=== PATIENT | male | born 1935 | race Caucasian/White ===

== ENCOUNTER 2017-04-15 21:26 | Emergency (ER) | payer MEDICARE ==
[2017-04-15 21:34] VITALS: RESP 18
[2017-04-15] MEDS ORDERED: RX INFO: IV CONTRAST WAS GIVEN 1 EACH MISC MISCELLANE PRN (21:56)
[2017-04-15] MEDS ORDERED: SODIUM CHLORIDE 0.9% 1,000 ML IV STA (21:56)
[2017-04-15 23:07] LABS: Basophils % (A) 0 %; CH 27.5; CHCM 32.4; Eosinophils # (A) 0.1 k/uL (0-0.7); Eosinophils % (A) 1 %; HCT 39.9 % (39.0-53.0); HDW 2.37; HGB 13.3 gm/dL (13.0-17.5); Luc # (Auto) 0.22; Luc % (Auto) 3; Lymphocytes # (A) 1.3 k/uL (1.0-4.8); Lymphocytes % (A) 15 %; MCH 28.5 pg (25.0-35.0); MCHC 33.3 g/dL (31.0-37.0); MCV 85.4 fL (80.0-100.0); Mean Platelet Volume 7.5; Monocytes # (A) 0.7 k/uL (0-1.0); Monocytes % (A) 8 %; Neutrophils # (A) 6.5 k/uL (1.3-7.7); Neutrophils % (A) 73 %; RBC 4.67 m/uL (4.30-5.90); RDW 15.8 % (11.5-15.5); WBC 8.9 k/uL (3.8-10.6)
--- NOTE | 2017-04-15 23:07 | ED ---
Abdominal Pain HPI - General Chief Complaint: Abdominal Pain Stated Complaint: Regi Pain Time Seen by Provider: 04/15/17 21:49 Source: patient, RN notes reviewed Mode of arrival: ambulatory Limitations: no limitations - History of Present Illness Initial Comments: 81-year-old male presents to the emergency department with a chief complaint of left-sided abdominal pain. Patient has had this pain for the past few days. Today just seemed to get worse. Patient states that he went to urgent care and was informed and down pain and to go home. Patient states it got worse. Bumps the car ride here made it hurt worse. Patient does have a history of diverticulitis. He denies any fever chills nausea vomiting. This time he denies pain.Patient denies any recent fever, chills, shortness of breath, chest pain, back pain, nausea vomiting, numbness or tingling, dysuria or hematuria, constipation or diarrhea, headaches or visual changes, or any other current symptoms. - Related Data Previous Rx's Medication Instructions Recorded Ciprofloxacin HCl [Cipro] 500 mg PO Q12HR #14 tablet 04/16/17 metroNIDAZOLE [Flagyl] 500 mg PO TID #21 tab 04/16/17 Allergies Allergy/AdvReac Type Severity Reaction Status Date / Time lisinopril [From Zestril] Allergy Cough Verified 04/15/17 21:34 Review of Systems ROS Statement: Those systems with pertinent positive or pertinent negative responses have been documented in the HPI. ROS Other: All systems not noted in ROS Statement are negative. Past Medical History Past Medical History: Cancer, CVA/TIA History of Any Multi-Drug Resistant Organisms: None Reported Past Surgical History: Hernia Repair Additional Past Surgical History / Comment(s): Mitral valve repair Past Psychological History: No Psychological Hx Reported Smoking Status: Never smoker Past Alcohol Use History: Occasional Past Drug Use History: None Reported General Exam - General Exam Comments Initial Comments: General: The patient is awake and alert, in no distress, and does not appear acutely ill. Eye: Pupils are equal, round and reactive to light, extra-ocular movements are intact; there is normal conjunctiva bilaterally. No signs of icterus. Ears, nose, mouth and throat: There are moist mucous membranes and no oral lesions. Neck: The neck is supple, there is no tenderness. Cardiovascular: There is a regular rate and rhythm. No murmur, rub or gallop is appreciated. Respiratory: Lungs are clear to auscultation, respirations are non-labored, breath sounds are equal. No wheezes, stridor, rales, or rhonchi. Gastrointestinal: Soft, non-distended, left lower quadrant tenderness of the abdomen without masses or organomegaly noted. There is no rebound or guarding present. No CVA tenderness. Bowel sounds are unremarkable. Back: There is no tenderness to palpation in the midline. There is no obvious deformity. No rashes noted. Musculoskeletal: Normal ROM, no tenderness, There is no pedal edema. There is no calf tenderness or swelling. Sensation intact. Pulses equal bilaterally 2+. Neurological: CN II-XII intact, There are no obvious motor or sensory deficits. Coordination appears grossly intact. Speech is normal. Skin: Skin is warm and dry and no rashes or lesions are noted. Psychiatric: Cooperative, appropriate mood & affect, normal judgment. Limitations: no limitations Course Vital Signs 04/15/17 04/16/17 21:30 00:19 Temperature 99.1 F 97.8 F Pulse Rate 75 65 Respiratory 18 18 Rate Blood Pressure 144/66 144/79 O2 Sat by Pulse 95 99 Oximetry Medical Decision Making - Medical Decision Making 81-year-old male presents emergency Department chief complaint of left-sided abdominal pain. This time patient's CAT scan of blood work is reviewed. There is concern for acute diverticulitis. Patient has only blood cell count and vital signs are stable at this time. Patient was offered admission hospital he states he would like to try on antibiotics. We will start him on Cipro Flagyl for home. We discussed close follow-up with his doctor and return parameters. Patient does agree with this plan all questions have been answered. We will discharge the patient per his request. He does not stay in the hospital. - Lab Data Result diagrams: 04/15/17 22:47 04/15/17 22:47 Lab Results 04/15/17 04/15/17 04/15/17 Range/Units 22:47 22:47 22:47 WBC 8.9 (3.8-10.6) k/uL RBC 4.67 (4.30-5.90) m/uL Hgb 13.3 (13.0-17.5) gm/dL Hct 39.9 (39.0-53.0) % MCV 85.4 (80.0-100.0) fL MCH 28.5 (25.0-35.0) pg MCHC 33.3 (31.0-37.0) g/dL RDW 15.8 H (11.5-15.5) % Plt Count 175 (150-450) k/uL Neutrophils % 73 % Lymphocytes % 15 % Monocytes % 8 % Eosinophils % 1 % Basophils % 0 % Neutrophils # 6.5 (1.3-7.7) k/uL Lymphocytes # 1.3 (1.0-4.8) k/uL Monocytes # 0.7 (0-1.0) k/uL Eosinophils # 0.1 (0-0.7) k/uL Basophils # 0.0 (0-0.2) k/uL Sodium 138 (137-145) mmol/L Potassium 4.3 (3.5-5.1) mmol/L Chloride 103 (98-107) mmol/L Carbon Dioxide 26 (22-30) mmol/L Anion Gap 9 mmol/L BUN 17 (9-20) mg/dL Creatinine 0.80 (0.66-1.25) mg/dL Est GFR (MDRD) Af Amer >60 (>60 ml/min/1.73 sqM) Est GFR (MDRD) Non-Af >60 (>60 ml/min/1.73 sqM) Glucose 99 (74-99) mg/dL Plasma Lactic Acid Ángel 0.7 (0.7-2.0) mmol/L Calcium 9.1 (8.4-10.2) mg/dL Total Bilirubin 0.6 (0.2-1.3) mg/dL AST 23 (17-59) U/L ALT 29 (21-72) U/L Alkaline Phosphatase 72 (38-126) U/L Total Protein 6.4 (6.3-8.2) g/dL Albumin 3.5 (3.5-5.0) g/dL Amylase 39 (30-110) U/L Lipase 89 (23-300) U/L Urine Color Urine Appearance (Clear) Urine pH (5.0-8.0) Ur Specific [place] (1.001-1.035) Urine Protein (Negative) Urine Glucose (UA) (Negative) Urine Ketones (Negative) Urine Blood (Negative) Urine Nitrite (Negative) Urine Bilirubin (Negative) Urine Urobilinogen (<2.0) mg/dL Ur Leukocyte Esterase (Negative) 04/15/17 Range/Units 22:47 WBC (3.8-10.6) k/uL RBC (4.30-5.90) m/uL Hgb (13.0-17.5) gm/dL Hct (39.0-53.0) % MCV (80.0-100.0) fL MCH (25.0-35.0) pg MCHC (31.0-37.0) g/dL RDW (11.5-15.5) % Plt Count (150-450) k/uL Neutrophils % % Lymphocytes % % Monocytes % % Eosinophils % % Basophils % % Neutrophils # (1.3-7.7) k/uL Lymphocytes # (1.0-4.8) k/uL Monocytes # (0-1.0) k/uL Eosinophils # (0-0.7) k/uL Basophils # (0-0.2) k/uL Sodium (137-145) mmol/L Potassium (3.5-5.1) mmol/L Chloride (98-107) mmol/L Carbon Dioxide (22-30) mmol/L Anion Gap mmol/L BUN (9-20) mg/dL Creatinine (0.66-1.25) mg/dL Est GFR (MDRD) Af Amer (>60 ml/min/1.73 sqM) Est GFR (MDRD) Non-Af (>60 ml/min/1.73 sqM) Glucose (74-99) mg/dL Plasma Lactic Acid [place] (0.7-2.0) mmol/L Calcium (8.4-10.2) mg/dL Total Bilirubin (0.2-1.3) mg/dL AST (17-59) U/L ALT (21-72) U/L Alkaline Phosphatase (38-126) U/L Total Protein (6.3-8.2) g/dL Albumin (3.5-5.0) g/dL Amylase (30-110) U/L Lipase (23-300) U/L Urine Color Light Yellow Urine Appearance Clear (Clear) Urine pH 7.0 (5.0-8.0) Ur Specific [place] 1.009 (1.001-1.035) Urine Protein Negative (Negative) Urine Glucose (UA) Negative (Negative) Urine Ketones Negative (Negative) Urine Blood Negative (Negative) Urine Nitrite Negative (Negative) Urine Bilirubin Negative (Negative) Urine Urobilinogen <2.0 (<2.0) mg/dL Ur Leukocyte Esterase Negative (Negative) - Radiology Data Radiology results: report reviewed, image reviewed Disposition Clinical Impression: Acute diverticulitis Disposition: HOME SELF-CARE Condition: Stable Instructions: Diverticulitis (ED), Diverticulitis Diet (ED) Additional Instructions: Please use medication as discussed. Please follow up with family doctor if symptoms have not improved over the next two days. Please return to the emergency room if your symptoms increase or worsen or for any other concerns. Prescriptions: Ciprofloxacin HCl [Cipro] 500 mg PO Q12HR #14 tablet metroNIDAZOLE [Flagyl] 500 mg PO TID #21 tab Referrals: Angela Emery MD [Primary Care Provider] - 1-2 days Time of Disposition: 01:05
[2017-04-15 23:08] LABS: Appearance,Urine Clear (Clear); Bilirubin,Urine Negative (Negative); Glucose,Urine (UA) Negative (Negative); Ketones,Urine Negative (Negative); Leukocyte Esterase,Urine Negative (Negative); Nitrite,Urine Negative (Negative); Protein,Urine Negative (Negative); Specific Gravity,Urine 1.009 (1.001-1.035); UA Billing (MACRO vs. MICRO) CHEM; Urobilinogen,Urine <2.0 mg/dL (<2.0)
[2017-04-15 23:20] LABS: ALT 29 U/L (21-72); AST 23 U/L (17-59); Alkaline Phosphatase 72 U/L (38-126); Amylase 39 U/L (30-110); Anion Gap 9 mmol/L; Blood Urea Nitrogen 17 mg/dL (9-20); Calcium 9.1 mg/dL (8.4-10.2); Carbon Dioxide 26 mmol/L (22-30); Chloride 103 mmol/L (98-107); Glucose 99 mg/dL (74-99); Non-African American GFR(MDRD) >60 (>60 ml/min/1.73 sqM); Potassium 4.3 mmol/L (3.5-5.1); Sodium 138 mmol/L (137-145); Total Bilirubin 0.6 mg/dL (0.2-1.3); Total Protein 6.4 g/dL (6.3-8.2)
--- NOTE | 2017-04-16 00:50 | CT ---
EXAM: CT Abdomen and Pelvis With Intravenous Contrast CLINICAL HISTORY: Reason: Pain TECHNIQUE: Axial computed tomography images of the abdomen and pelvis with intravenous contrast. CTDI is 17 mGy and DLP is 607.70 mGy-cm. This CT exam was performed using one or more of the following dose reduction techniques: automated exposure control, adjustment of the mA and/or kV according to patient size, and/or use of iterative reconstruction technique. COMPARISON: None FINDINGS: Lower thorax: Parenchymal scarring in the right middle lobe, and left lower lobe atelectasis. Mild cardiomegaly. Status post mitral valve replacement. ABDOMEN: Liver: Unremarkable. No mass. Gallbladder and bile ducts: Unremarkable. No calcified stones. No ductal dilation. Pancreas: Unremarkable. No mass. No ductal dilation. Spleen: Unremarkable. No splenomegaly. Adrenals: Unremarkable. No mass. Kidneys and ureters: Unremarkable. No solid mass. No hydronephrosis. Stomach and bowel: Mucosal wall thickening and mesenteric inflammation surrounding multiple diverticula in the distal descending colon, compatible with acute diverticulitis. No evidence of perforation or abscess. Post surgical changes involving the ascending colon within focally dilated loop of bowel containing fecal material. No signs of obstruction. Appendix: No findings to suggest acute appendicitis. PELVIS: Bladder: Prostate gland significantly enlarged and heterogeneous. Mass effect upon the posterior urinary bladder wall. Reproductive: See above. ABDOMEN and PELVIS: Intraperitoneal space: Unremarkable. No free air. No significant fluid collection. Bones/joints: Grade 1 anterolisthesis of L5 on S1 secondary to bilateral pars defects. Severe disc height loss at the L5-S1 level. Mild multilevel lumbar spondylosis. No acute fracture. No dislocation. Soft tissues: Unremarkable. Vasculature: Unremarkable. No abdominal aortic aneurysm. Lymph nodes: Unremarkable. No enlarged lymph nodes. IMPRESSION: Acute diverticulitis involving the descending colon without evidence of perforation or abscess. Consider follow-up colonoscopy after acute symptoms have resolved. Enlarged and heterogeneous prostate gland. Correlate with exam and PSA levels. 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
[2017-04-16] MEDS ORDERED: CIPROFLOXACIN HCL 500 MG TAB PO STA (01:05)
[2017-04-16] MEDS ORDERED: metroNIDAZOLE 500 MG TAB PO STA (01:05)
[2017-04-16 01:42] VITALS: BP 140/81; PULSE 84; TEMP 98.1
== END 2017-04-16 01:42 | disposition home or self-care (01) ==
LOC: EC 21:26
DX: K57.32 Diverticulitis of large intestine without perforation or abscess without bleeding (principal); Z88.8 Allergy status to other drugs, medicaments and biological substances
CPT/HCPCS: 99284; 96360; 36415; 80053; 82150; 83605; 83690; 85025; 81003; 87040; 87086; 74177; Q9967

== ENCOUNTER 2018-07-03 16:27 | Inpatient (IN) | payer MEDICARE ==
[2018-07-03] MEDS ORDERED: SODIUM CHLORIDE 0.9% 1,000 ML IV STA (16:49)
--- NOTE | 2018-07-03 16:53 | ED ---
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 Family got a piece felt lightheaded and had trouble navigating. He states this lasted about 15-20 seconds. He did follow-up with his doctor today and he was noted to be in atrial fibrillation which he is not normally in. He has any chest pain palpitations shortness of breath fevers chills sweats peripheral edema. He denies any other complaints no new medications reported. No other modifying factors at this time. MD Complaint: atrial fibrillation - Related Data Home Medications Medication Instructions Recorded Confirmed Aspirin EC [Ecotrin Low Dose] 81 mg PO HS 07/03/18 07/03/18 Cholecalciferol [Vitamin D3] 1,000 unit PO DAILY 07/03/18 07/03/18 Green Tea [place] Extract [Green Tea 150 mg PO DAILY 07/03/18 07/03/18 Extract] Turmeric Root Extract [Turmeric] 500 mg PO DAILY 07/03/18 07/03/18 amLODIPine [Norvasc] 5 mg PO DAILY 07/03/18 07/03/18 Allergies Allergy/AdvReac Type Severity Reaction Status Date / Time lisinopril [From Zestril] Allergy Cough Verified 07/03/18 17:11 Review of Systems ROS Statement: Those systems with pertinent positive or pertinent negative responses have been documented in the HPI. ROS Other: All systems not noted in ROS Statement are negative. Past Medical History Past Medical History: Atrial Fibrillation, Cancer, CVA/TIA Additional Past Medical History / Comment(s): colon CA History of Any Multi-Drug Resistant Organisms: None Reported Past Surgical History: Bowel Resection, Hernia Repair Additional Past Surgical History / Comment(s): colon resection, Mitral valve repair Past Psychological History: No Psychological Hx Reported Smoking Status: Never smoker Past Alcohol Use History: Occasional Past Drug Use History: None Reported General Exam - General Exam Comments Initial Comments: This is a well-developed well-nourished awake alert oriented 3 male Limitations: no limitations General appearance: alert, in no apparent distress Head exam: Present: atraumatic, normocephalic, normal inspection Eye exam: Present: normal appearance, PERRL, EOMI. Absent: scleral icterus, conjunctival injection, periorbital swelling ENT exam: Present: normal exam, mucous membranes moist Neck exam: Present: normal inspection. Absent: tenderness, meningismus, lymphadenopathy Respiratory exam: Present: normal lung sounds bilaterally. Absent: respiratory distress, wheezes, rales, rhonchi, stridor Cardiovascular Exam: Present: tachycardia, irregular rhythm. Absent: systolic murmur, diastolic murmur, rubs, gallop, clicks GI/Abdominal exam: Present: soft, normal bowel sounds. Absent: distended, tenderness, guarding, rebound, rigid Extremities exam: Present: normal inspection, full ROM, normal capillary refill. Absent: tenderness, pedal edema, joint swelling, calf tenderness Back exam: Present: normal inspection Neurological exam: Present: alert, oriented X3, CN II-XII intact Psychiatric exam: Present: normal affect, normal mood Skin exam: Present: warm, dry, intact, normal color. Absent: rash Course Vital Signs 07/03/18 07/03/18 07/03/18 16:30 16:58 17:00 Temperature 97.3 F L Pulse Rate 85 105 H Pulse Rate [ 78 Apical] Respiratory 16 18 Rate Blood Pressure 148/94 137/80 O2 Sat by Pulse 95 96 Oximetry 07/03/18 07/03/18 07/03/18 17:30 18:00 18:30 Temperature Pulse Rate 95 95 112 H Pulse Rate [ Apical] Respiratory 18 16 18 Rate Blood Pressure 129/88 127/89 122/79 O2 Sat by Pulse 96 93 L Oximetry 07/03/18 07/03/18 07/03/18 19:00 19:30 20:00 Temperature Pulse Rate 79 93 88 Pulse Rate [ Apical] Respiratory 18 20 18 Rate Blood Pressure 127/106 132/82 144/81 O2 Sat by Pulse 91 L 96 95 Oximetry - Reevaluation(s) Reevaluation #1: 07/03/18 20:44 Reevaluation patient reveals he is still sustained atrial fibrillation with a variable response rate. No chest pain no shortness of breath no other symptoms at this time. X-rays were reviewed unremarkable for acute findings. EKG Findings - EKG Results: EKG: interpreted by ERMD (Atrial fibrillation with a rate of 102 QRS duration 106 QT since QTC 356/[address] configuration occasional PVCs noted) Medical Decision Making - Medical Decision Making I did discuss findings with patient and family members as well as with Dr. Dahl. Patient be admitted for evaluation of rapid atrial fibrillation. Dr. Razo will be consulted as he is the patient's edgerman. - Lab Data Result diagrams: 07/03/18 16:55 07/03/18 16:55 Lab Results 07/03/18 07/03/18 07/03/18 Range/Units 16:55 16:55 16:55 WBC 7.4 (3.8-10.6) k/uL RBC 4.74 (4.30-5.90) m/uL Hgb 14.7 (13.0-17.5) gm/dL Hct 44.5 (39.0-53.0) % MCV 93.8 (80.0-100.0) fL MCH 31.0 (25.0-35.0) pg MCHC 33.0 (31.0-37.0) g/dL RDW 12.8 (11.5-15.5) % Plt Count 204 (150-450) k/uL Neutrophils % 67 % Lymphocytes % 21 % Monocytes % 8 % Eosinophils % 1 % Basophils % 0 % Neutrophils # 5.0 (1.3-7.7) k/uL Lymphocytes # 1.6 (1.0-4.8) k/uL Monocytes # 0.6 (0-1.0) k/uL Eosinophils # 0.1 (0-0.7) k/uL Basophils # 0.0 (0-0.2) k/uL PT (9.0-12.0) sec INR (<1.2) APTT (22.0-30.0) sec Sodium 136 L (137-145) mmol/L Potassium 4.6 (3.5-5.1) mmol/L Chloride 104 (98-107) mmol/L Carbon Dioxide 23 (22-30) mmol/L Anion Gap 9 mmol/L BUN 24 H (9-20) mg/dL Creatinine 0.97 (0.66-1.25) mg/dL Est GFR (CKD-EPI)AfAm 84 (>60 ml/min/1.73 sqM) Est GFR (CKD-EPI)NonAf 73 (>60 ml/min/1.73 sqM) Glucose 95 (74-99) mg/dL Calcium 9.2 (8.4-10.2) mg/dL Magnesium 2.3 (1.6-2.3) mg/dL Total Bilirubin 0.7 (0.2-1.3) mg/dL AST 36 (17-59) U/L ALT 6 L (21-72) U/L Alkaline Phosphatase 89 (38-126) U/L Total Creatine Kinase 120 (55-170) U/L CK-MB (CK-2) 2.3 (0.0-2.4) ng/mL CK-MB (CK-2) Rel Index 1.9 Troponin I 0.013 (0.000-0.034) ng/mL Total Protein 6.8 (6.3-8.2) g/dL Albumin 3.8 (3.5-5.0) g/dL TSH 2.230 (0.465-4.680) mIU/L 07/03/18 Range/Units 16:55 WBC (3.8-10.6) k/uL RBC (4.30-5.90) m/uL Hgb (13.0-17.5) gm/dL Hct (39.0-53.0) % MCV (80.0-100.0) fL MCH (25.0-35.0) pg MCHC (31.0-37.0) g/dL RDW (11.5-15.5) % Plt Count (150-450) k/uL Neutrophils % % Lymphocytes % % Monocytes % % Eosinophils % % Basophils % % Neutrophils # (1.3-7.7) k/uL Lymphocytes # (1.0-4.8) k/uL Monocytes # (0-1.0) k/uL Eosinophils # (0-0.7) k/uL Basophils # (0-0.2) k/uL PT 10.8 (9.0-12.0) sec INR 1.1 (<1.2) APTT 23.0 (22.0-30.0) sec Sodium (137-145) mmol/L Potassium (3.5-5.1) mmol/L Chloride (98-107) mmol/L Carbon Dioxide (22-30) mmol/L Anion Gap mmol/L BUN (9-20) mg/dL Creatinine (0.66-1.25) mg/dL Est GFR (CKD-EPI)AfAm (>60 ml/min/1.73 sqM) Est GFR (CKD-EPI)NonAf (>60 ml/min/1.73 sqM) Glucose (74-99) mg/dL Calcium (8.4-10.2) mg/dL Magnesium (1.6-2.3) mg/dL Total Bilirubin (0.2-1.3) mg/dL AST (17-59) U/L ALT (21-72) U/L Alkaline Phosphatase (38-126) U/L Total Creatine Kinase (55-170) U/L CK-MB (CK-2) (0.0-2.4) ng/mL CK-MB (CK-2) Rel Index Troponin I (0.000-0.034) ng/mL Total Protein (6.3-8.2) g/dL Albumin (3.5-5.0) g/dL TSH (0.465-4.680) mIU/L - Radiology Data Radiology results: report reviewed, image reviewed (I did review the imaging and report no acute findings.) Critical Care Time Critical Care Time: Yes Critical Care Time: 39 minutes of critical care time which includes initial presentation with history physical labs x-rays several reevaluation the patient. Discussed with the patient family regarding findings review of old charting that was available. Discussion with the admitting physician admission orders and documentation of the above. Disposition Clinical Impression: Rapid atrial fibrillation Disposition: ADMITTED IP TO THIS HOSP Condition: Stable Referrals: Angela Emery MD [Primary Care Provider] - 1-2 days
--- NOTE | 2018-07-03 17:20 | XR ---
EXAMINATION TYPE: XR chest 2V DATE OF EXAM: 07/03/2018 COMPARISON: Chest x-ray August 25, 2012 HISTORY: Dizziness and dysrhythmia. TECHNIQUE: Frontal and lateral views of the chest are obtained. FINDINGS: There is chronic parenchymal changes elevated left hemidiaphragm on current study. There is no focal air space opacity, pleural effusion, or pneumothorax seen. The cardiac silhouette size rem ains enlarged with curvilinear density at level of mitral valve redemonstrated. The osseous structu res are intact. IMPRESSION: Chronic changes and cardiomegaly without acute pulmonary process.
[2018-07-03 17:33] LABS: Basophils % (A) 0 %; Eosinophils # (A) 0.1 k/uL (0-0.7); Eosinophils % (A) 1 %; HCT 44.5 % (39.0-53.0); HGB 14.7 gm/dL (13.0-17.5); Lymphocytes # (A) 1.6 k/uL (1.0-4.8); Lymphocytes % (A) 21 %; MCV 93.8 fL (80.0-100.0); Monocytes # (A) 0.6 k/uL (0-1.0); Monocytes % (A) 8 %; Neutrophils % (A) 67 %; Platelet Count 204 k/uL (150-450); RBC 4.74 m/uL (4.30-5.90); RDW 12.8 % (11.5-15.5); WBC 7.4 k/uL (3.8-10.6)
[2018-07-03 17:44] LABS: Albumin 3.8 g/dL (3.5-5.0); Calcium 9.2 mg/dL (8.4-10.2); Magnesium 2.3 mg/dL (1.6-2.3); Potassium 4.6 mmol/L (3.5-5.1); Total Bilirubin 0.7 mg/dL (0.2-1.3); Total Protein 6.8 g/dL (6.3-8.2)
[2018-07-03 17:48] LABS: INR 1.1 (<1.2); Prothrombin Time 10.8 sec (9.0-12.0)
[2018-07-03 17:59] LABS: Creatine Kinase MB 2.3 ng/mL (0.0-2.4); Troponin I 0.013 ng/mL (0.000-0.034)
[2018-07-03] MEDS ORDERED: HEPARIN SODIUM,PORCINE 5,000 UNIT/ML 1 ML VIAL IV ONE (20:48)
[2018-07-03] MEDS ORDERED: NALOXONE 0.4 MG/ML 1 ML VIAL IV PRN (20:52)
[2018-07-03] MEDS ORDERED: HEPARIN SOD,PORK IN 0.45% NACL 25,000 UNIT in 0.45% NACL 1 500ML.BAG IV SCH (21:00)
[2018-07-03] MEDS: DILTIAZEM 50 MG in SODIUM CHLORIDE 0.9% 40 ML IV SCH (22:04)
[2018-07-04] MEDS: SODIUM CHLORIDE 0.9% 1,000 ML IV SCH (00:49)
[2018-07-04] MEDS: ASPIRIN 81 MG PO SCH ×2 (00:49→06:30)
[2018-07-04 01:07] VITALS: RESP 16
[2018-07-04] MEDS: DILTIAZEM 50 MG in SODIUM CHLORIDE 0.9% 40 ML IV SCH (01:45)
[2018-07-04] MEDS: CHOLECALCIFEROL 1,000 UNIT TAB PO SCH (08:39)
[2018-07-04] MEDS: amLODIPine 5 MG TAB PO SCH (08:39)
--- NOTE | 2018-07-04 09:50 | P.CRDCN ---
History of Present Illness Consult date: 07/04/18 Requesting physician: Cipriano Dahl Consult reason: atrial fibrillation Chief complaint: Lightheadedness and near-syncope History of present illness: This is a pleasant 82-year-old gentleman who follows with Dr. Rascon in the office. He has a known history of hypertension,Mitral valve repair, paroxysmal atrial fibrillation for which he states he was on Coumadin in the past, he has history of a brain bleed, he is unsure exactly of the timing of when that occurred, but his anticoagulation was discontinued at that time. He states that he was brought to [facility] in [place] at the time that occurred. We will get information from there. Overall patient is extremely physically active, he states that he was working on his Upper, lying on the ground yesterday, and he went to stand up and became very lightheaded and felt as though he may pass out. He was concerned that he may be having a stroke so he went to his primary care doctor's office, and EKG was performed there which showed atrial fibrillation with a rapid ventricular response, and patient was directed to come to the emergency room for further evaluation. EKG on arrival here showed atrial fibrillation with a moderately rapid ventricular response nonspecific ST-T wave changes. Chest x-ray showed chronic changes and cardiomegaly without any acute pulmonary process. Blood pressure 126/70 with a heart rate in the 70s, 95% on room air. Patient is afebrile. CBC is normal. Sodium 136, potassium 4.6, BUN 24, creatinine 0.9. Troponin 0.013. TSH 2.2. At the time of my examination this morning, patient feels well, he denies any dizziness or lightheadedness, no palpitations, no shortness of breath. Past Medical History Past Medical History: Atrial Fibrillation, Cancer, CVA/TIA, Osteoarthritis (OA) , Prostate Disorder Additional Past Medical History / Comment(s): colon CA-sx only. djd lt knee, rt hip. 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-pt stated no sx History of Any Multi-Drug Resistant Organisms: None Reported Past Surgical History: Bowel Resection, Hernia Repair Additional Past Surgical History / Comment(s): colon resection, Mitral valve repair, cinthia cataracts, varicose vein stripping, lt inguinal hernia repair, colonoscopy Past Anesthesia/Blood Transfusion Reactions: No Reported Reaction Additional Past Anesthesia/Blood Transfusion Reaction / Comment(s): clausterphobia Smoking Status: Never smoker - Past Family History Mother Additional Family Medical History / Comment(s): lupus Father Additional Family Medical History / Comment(s): anuerysm Medications and Allergies Home Medications Medication Instructions Recorded Confirmed Type Aspirin EC [Ecotrin Low Dose] 81 mg PO HS 07/03/18 07/03/18 History Cholecalciferol [Vitamin D3] 1,000 unit PO DAILY 07/03/18 07/03/18 History Green Tea [place] Extract [Green Tea 150 mg PO DAILY 07/03/18 07/03/18 History Extract] Turmeric Root Extract [Turmeric] 500 mg PO DAILY 07/03/18 07/03/18 History amLODIPine [Norvasc] 5 mg PO DAILY 07/03/18 07/03/18 History Allergies Allergy/AdvReac Type Severity Reaction Status Date / Time lisinopril [From Zestril] Allergy Cough Verified 07/03/18 17:11 Physical Exam Vitals: Vital Signs Temp Pulse Pulse Pulse Resp BP BP 07/04/18 08:00 98.0 F 79 16 126/75 07/04/18 03:44 98.4 F 78 16 146/97 07/04/18 00:15 97.8 F 85 85 16 140/81 07/03/18 23:00 92 11 L 142/99 07/03/18 22:45 106 H 18 142/99 07/03/18 22:30 72 7 L 142/99 07/03/18 22:15 80 8 L 142/99 07/03/18 22:00 83 0 L 141/83 07/03/18 21:45 90 18 141/83 07/03/18 21:30 90 15 141/83 07/03/18 21:15 87 18 141/83 07/03/18 21:00 94 20 07/03/18 20:45 86 18 07/03/18 20:30 90 15 07/03/18 20:00 88 18 144/81 07/03/18 19:30 93 20 132/82 07/03/18 19:00 79 18 127/106 07/03/18 18:30 112 H 18 122/79 07/03/18 18:00 95 16 127/89 07/03/18 17:30 95 18 129/88 07/03/18 17:00 105 H 18 137/80 07/03/18 16:58 78 07/03/18 16:30 97.3 F L 85 16 148/94 Pulse Ox 07/04/18 08:00 95 07/04/18 03:44 94 L 07/04/18 00:15 97 07/03/18 23:00 07/03/18 22:45 94 L 07/03/18 22:30 94 L 07/03/18 22:15 94 L 07/03/18 22:00 95 07/03/18 21:45 94 L 07/03/18 21:30 95 07/03/18 21:15 95 07/03/18 21:00 96 07/03/18 20:45 93 L 07/03/18 20:30 96 07/03/18 20:00 95 07/03/18 19:30 96 07/03/18 19:00 91 L 07/03/18 18:30 07/03/18 18:00 93 L 07/03/18 17:30 96 07/03/18 17:00 96 07/03/18 16:58 07/03/18 16:30 95 Intake and Output 07/03/18 07/04/18 07/04/18 22:59 06:59 14:59 Intake Total 18.417 240 Balance 18.417 240 Intake: Intake, IV Titration 18.417 Amount Diltiazem 50 mg In Sodium 18.417 Chloride 0.9% 40 ml @ 5 MG/HR 5 mls/hr IV .Q10H [facility] Rx#:[id number] Oral 240 Other: Voiding Method Toilet # Voids 1 Weight 78.471 kg 80 kg PHYSICAL EXAMINATION: GENERAL: 82-year-old gentleman in no acute distress at the time of my examination HEENT: Head is atraumatic, normocephalic. Pupils equal, round. Sclera anicteric. Conjunctiva are clear. Mucous membranes of the mouth are moist. Neck is supple. There is no elevated jugular venous pressure. No carotid bruit is heard. HEART EXAMINATION: Heart S1 and S2 irregularly irregular systolic murmur heard CHEST EXAMINATION: Lungs are clear to auscultation and precussion. No chest wall tenderness is noted on palpation or with deep breathing. ABDOMEN: Soft, nontender. Bowel sounds are heard. No organomegaly noted. EXTREMITIES: 2+ peripheral pulses with no evidence of peripheral edema and no calf tenderness noted. NEUROLOGIC patient is awake, alert and oriented 3 . . Results 07/03/18 16:55 07/03/18 16:55 Cardiac Enzymes 07/03/18 07/03/18 Range/Units 16:55 16:55 AST 36 (17-59) U/L CK-MB (CK-2) 2.3 (0.0-2.4) ng/mL Troponin I 0.013 (0.000-0.034) ng/mL Coagulation 07/03/18 Range/Units 16:55 PT 10.8 (9.0-12.0) sec APTT 23.0 (22.0-30.0) sec CBC 07/03/18 Range/Units 16:55 WBC 7.4 (3.8-10.6) k/uL RBC 4.74 (4.30-5.90) m/uL Hgb 14.7 (13.0-17.5) gm/dL Hct 44.5 (39.0-53.0) % Plt Count 204 (150-450) k/uL Comprehensive Metabolic Panel 07/03/18 Range/Units 16:55 Sodium 136 L (137-145) mmol/L Potassium 4.6 (3.5-5.1) mmol/L Chloride 104 (98-107) mmol/L Carbon Dioxide 23 (22-30) mmol/L BUN 24 H (9-20) mg/dL Creatinine 0.97 (0.66-1.25) mg/dL Glucose 95 (74-99) mg/dL Calcium 9.2 (8.4-10.2) mg/dL AST 36 (17-59) U/L ALT 6 L (21-72) U/L Alkaline Phosphatase 89 (38-126) U/L Total Protein 6.8 (6.3-8.2) g/dL Albumin 3.8 (3.5-5.0) g/dL Current Medications Generic Name Dose Route Start Last Admin Trade Name Freq PRN Reason Stop Dose Admin Amlodipine Besylate 5 mg 07/04/18 09:00 07/04/18 08:39 Norvasc PO 5 mg DAILY DULCE MARIA Administration Aspirin 81 mg 07/03/18 21:00 07/04/18 06:30 Aspirin PO 81 mg HS DULCE MARIA Administration Cholecalciferol 1,000 unit 07/04/18 09:00 07/04/18 08:39 Vitamin D3 PO 1,000 unit DAILY DULCE MARIA Administration Diltiazem HCl 50 mg/ Sodium 50 mls @ 5 mls/hr 07/03/18 21:00 07/04/18 01:45 Chloride IV 5 mg/hr .Q10H DULCE MARIA 5 mls/hr Administration 5 MG/HR Sodium Chloride 1,000 mls @ 20 mls/hr 07/03/18 21:00 07/04/18 00:49 Saline 0.9% IV Not Given .Q24H DULCE MARIA Naloxone HCl 0.2 mg 07/03/18 20:52 Narcan IV Q2M PRN Opioid Reversal Intake and Output 07/03/18 07/04/18 07/04/18 22:59 06:59 14:59 Intake Total 18.417 240 Balance 18.417 240 Intake: Intake, IV Titration 18.417 Amount Diltiazem 50 mg In Sodium 18.417 Chloride 0.9% 40 ml @ 5 MG/HR 5 mls/hr IV .Q10H DULCE MARIA Rx#:[id number] Oral 240 Other: Voiding Method Toilet # Voids 1 Weight 78.471 kg 80 kg 07/03/18 16:55 07/03/18 16:55 EKG Interpretations (text) EKG shows atrial fibrillation with a moderately rapid ventricular response Assessment and Plan Plan: Assessment and plan #1 atrial fibrillation, paroxysmal, currently on IV Cardizem at 5 mg per hour. Patient is not on anticoagulation because history of brain bleed. #2 hypertension #3 history of brain bleed, patient is uncertain exactly as to the timing of it. #4 hx of MV repair Plan We will obtain an echocardiogram with Doppler study. We will also obtain records from [facility] regarding the patient's history of a brain bleed. Discontinue IV Cardizem and start the patient on Beta Steven. Further recommendations to follow. DNP note has been reviewed, I agree with a documented findings and plan of care. Patient was seen and examined.
--- NOTE | 2018-07-04 10:28 | ECHOF ---
Referral Reason:afib MEASUREMENTS -------- HEIGHT: 180.3 cm WEIGHT: 79.8 kg BP: RVIDd: 4.4 cm (< 3.3) IVSd: 1.6 cm (0.6 - 1.1) LVIDd: 3.4 cm (3.9 - 5.3) LVPWd: 1.7 cm (0.6 - 1.1) IVSs: 2.2 cm LVIDs: 2.2 cm LVPWs: 1.9 cm LAESV Index (A-L): 52.01 ml/m Ao Diam: 3.9 cm (2.0 - 3.7) AV Cusp: 1.8 cm (1.5 - 2.6) LA Diam: 4.6 cm (2.7 - 3.8) MV EXCURSION: 13.536 mm (> 18.000) MV EF SLOPE: 80 mm/s (70 - 150) EPSS: 0.4 cm MV E David: 1.43 m/s MV DecT: 341 ms MV A David: 0.44 m/s MV E/A Ratio: 3.27 AR PHT: 278 ms RAP: 5.00 mmHg RVSP: 33.38 mmHg FINDINGS -------- Atrial fibrillation. This was a technically good study. The left ventricular size is normal. There is moderate concentric left ventricular hypertrophy. O verall left ventricular systolic function is normal with, an EF between 55 - 60 %. The right ventricle is severely enlarged. LA is severely dilated >40 ml/m2 The right atrium is normal in size. Aortic valve is trileaflet and is mildly thickened. There is mild aortic regurgitation. The mitral valve leaflets are mildly thickened. Mild mitral annular calcification present. Mild m itral regurgitation is present. Severe tricuspid regurgitation present. The right ventricular systolic pressure, as measured by Dop pler, is 33.38mmHg. Pulmonic valve appears structurally normal. The aortic root size is normal. Normal inferior vena cava with normal inspiratory collapse consistent with estimated right atrial pre ssure of 5 mmHg. The pericardium is normal. CONCLUSIONS -------- 1. Atrial fibrillation. 2. This was a technically good study. 3. The left ventricular size is normal. 4. There is moderate concentric left ventricular hypertrophy. 5. Overall left ventricular systolic function is normal with, an EF between 55 - 60 %. 6. The right ventricle is severely enlarged. 7. LA is severely dilated >40 ml/m2 8. The right atrium is normal in size. 9. Aortic valve is trileaflet and is mildly thickened. 10. There is mild aortic regurgitation. 11. The mitral valve leaflets are mildly thickened. 12. Mild mitral annular calcification present. 13. Mild mitral regurgitation is present. 14. Severe tricuspid regurgitation present. 15. The right ventricular systolic pressure, as measured by Doppler, is 33.38mmHg. 16. Pulmonic valve appears structurally normal. 17. The aortic root size is normal. 18. Normal inferior vena cava with normal inspiratory collapse consistent with estimated right atrial pressure of 5 mmHg. 19. The pericardium is normal. EYELET RIVETER: Angeline Haque RDCS
[2018-07-04] MEDS: METOPROLOL TARTRATE 25 MG TAB PO SCH ×2 (10:29→20:10)
--- NOTE | 2018-07-04 12:51 | P.HPIM ---
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 Patient follows up with Dr. Emery in the office. He presents because of lightheadedness and dizziness for 30 seconds that is resolved after he went inside and ate lunch. He went to his PCP who referred him to the emergency room. EKG shows atrial fibrillation's with RVR at 1 or 2. QTC is 463. Review of Systems CONSTITUTIONAL: No fever, no malaise, no fatigue. HEENT: No recent visual problems or hearing problems. Denied any sore throat. CARDIOVASCULAR: No orthopnea, PND, no palpitations, no syncope. PULMONARY: No shortness of breath, no cough, no hemoptysis. GASTROINTESTINAL: No diarrhea, no nausea, no vomiting, no abdominal pain. Normoactive bowel sounds. NEUROLOGICAL: No headaches, no weakness, no numbness. HEMATOLOGICAL: Denies any bleeding or petechiae. GENITOURINARY: Denies any burning micturition, frequency, or urgency. MUSCULOSKELETAL/RHEUMATOLOGICAL: Denies any joint pain, swelling, or any muscle pain. ENDOCRINE: Denies any polyuria or polydipsia. Past Medical History Past Medical History: Atrial Fibrillation, Cancer, CVA/TIA, Osteoarthritis (OA) , Prostate Disorder Additional Past Medical History / Comment(s): colon CA-sx only. djd lt knee, rt hip. 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-pt stated no sx History of Any Multi-Drug Resistant Organisms: None Reported Past Surgical History: Bowel Resection, Hernia Repair Additional Past Surgical History / Comment(s): colon resection, Mitral valve repair, cinthia cataracts, varicose vein stripping, lt inguinal hernia repair, colonoscopy Past Anesthesia/Blood Transfusion Reactions: No Reported Reaction Additional Past Anesthesia/Blood Transfusion Reaction / Comment(s): clausterphobia Smoking Status: Never smoker - Past Family History Mother Additional Family Medical History / Comment(s): lupus Father Additional Family Medical History / Comment(s): anuerysm Medications and Allergies Home Medications Medication Instructions Recorded Confirmed Type Aspirin EC [Ecotrin Low Dose] 81 mg PO HS 07/03/18 07/03/18 History Cholecalciferol [Vitamin D3] 1,000 unit PO DAILY 07/03/18 07/03/18 History Green Tea [place] Extract [Green Tea 150 mg PO DAILY 07/03/18 07/03/18 History Extract] Turmeric Root Extract [Turmeric] 500 mg PO DAILY 07/03/18 07/03/18 History amLODIPine [Norvasc] 5 mg PO DAILY 07/03/18 07/03/18 History Allergies Allergy/AdvReac Type Severity Reaction Status Date / Time lisinopril [From Zestril] Allergy Cough Verified 07/03/18 17:11 Physical Exam Vitals: Vital Signs Temp Pulse Pulse Pulse Resp BP BP 07/04/18 08:00 98.0 F 79 16 126/75 07/04/18 03:44 98.4 F 78 16 146/97 07/04/18 00:15 97.8 F 85 85 16 140/81 07/03/18 23:00 92 11 L 142/99 07/03/18 22:45 106 H 18 142/99 07/03/18 22:30 72 7 L 142/99 07/03/18 22:15 80 8 L 142/99 07/03/18 22:00 83 0 L 141/83 07/03/18 21:45 90 18 141/83 07/03/18 21:30 90 15 141/83 07/03/18 21:15 87 18 141/83 07/03/18 21:00 94 20 07/03/18 20:45 86 18 07/03/18 20:30 90 15 07/03/18 20:00 88 18 144/81 07/03/18 19:30 93 20 132/82 07/03/18 19:00 79 18 127/106 07/03/18 18:30 112 H 18 122/79 07/03/18 18:00 95 16 127/89 07/03/18 17:30 95 18 129/88 07/03/18 17:00 105 H 18 137/80 07/03/18 16:58 78 07/03/18 16:30 97.3 F L 85 16 148/94 Pulse Ox 07/04/18 08:00 95 07/04/18 03:44 94 L 07/04/18 00:15 97 07/03/18 23:00 07/03/18 22:45 94 L 07/03/18 22:30 94 L 07/03/18 22:15 94 L 07/03/18 22:00 95 07/03/18 21:45 94 L 07/03/18 21:30 95 07/03/18 21:15 95 07/03/18 21:00 96 07/03/18 20:45 93 L 07/03/18 20:30 96 07/03/18 20:00 95 07/03/18 19:30 96 07/03/18 19:00 91 L 07/03/18 18:30 07/03/18 18:00 93 L 07/03/18 17:30 96 07/03/18 17:00 96 07/03/18 16:58 07/03/18 16:30 95 Intake and Output 07/03/18 07/04/18 07/04/18 22:59 06:59 14:59 Intake Total 18.417 240 Balance 18.417 240 Intake: Intake, IV Titration 18.417 Amount Diltiazem 50 mg In Sodium 18.417 Chloride 0.9% 40 ml @ 5 MG/HR 5 mls/hr IV .Q10H [facility] Rx#:[id number] Oral 240 Other: Voiding Method Toilet # Voids 1 Weight 78.471 kg 80 kg GENERAL: The patient is alert and oriented x3, not in any acute distress. Well developed, well nourished. HEENT: Pupils are round and equally reacting to light. EOMI. No scleral icterus. No conjunctival pallor. Normocephalic, atraumatic. No pharyngeal erythema. No thyromegaly. CARDIOVASCULAR: S1 and S2 present. No murmurs, rubs, or gallops. PULMONARY: Chest is clear to auscultation, no wheezing or crackles. ABDOMEN: Soft, nontender, nondistended, normoactive bowel sounds. No palpable organomegaly. MUSCULOSKELETAL: No joint swelling or deformity. EXTREMITIES: No cyanosis, clubbing, or pedal edema. NEUROLOGICAL: Gross neurological examination did not reveal any focal deficits. SKIN: No rashes. Results CBC & Chem 7: 07/03/18 16:55 07/03/18 16:55 Labs: Abnormal Lab Results - Last 24 Hours (Table) 10/30/18 Range/Units 16:55 Sodium 136 L (137-145) mmol/L BUN 24 H (9-20) mg/dL ALT 6 L (21-72) U/L Thrombosis Risk Factor Assmnt - Choose All That Apply Any of the Below Risk Factors Present?: No Other Risk Factors: Yes Each Risk Factor Represents 3 Points: Age 75 years or older Other congenital or acquired thrombophilia - If yes, enter type in comment: No Thrombosis Risk Factor Assessment Total Risk Factor Score: 3 Thrombosis Risk Factor Assessment Level: Moderate Risk Assessment and Plan Assessment: Atrial fibrillation's with interrupted RVR 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 Cardiology evaluated the patient and adjusted medication to control her heart rate. Continue with aspirin and metoprolol. Labs and medication were resumed. Continue same treatment. Continue with symptomatic treatment. Resume home medication. Monitor lytes and vitals. DVT and GI prophylaxis. Further recommendations of the clinical course of the patient DVT prophylaxis: Subcutaneous heparin GI Prophylaxis: Pepcid PT/OT: Pending Prognosis is guarded
[2018-07-04] MEDS: HEPARIN SODIUM,PORCINE 5,000 UNIT/ML 1 ML VIAL SQ SCH (15:35)
[2018-07-04] MEDS: FAMOTIDINE 20 MG/2 ML VIAL IV SCH (20:09)
[2018-07-04] MEDS ORDERED: METOPROLOL TARTRATE 25 MG TAB PO SCH (21:00)
[2018-07-05] MEDS: SODIUM CHLORIDE 0.9% 1,000 ML IV SCH (00:57)
[2018-07-05] MEDS: HEPARIN SODIUM,PORCINE 5,000 UNIT/ML 1 ML VIAL SQ SCH ×2 (00:57→08:24)
[2018-07-05 07:57] VITALS: BP 122/76; PULSE 84; TEMP 97.4
[2018-07-05] MEDS: amLODIPine 5 MG TAB PO SCH (08:24)
[2018-07-05] MEDS: METOPROLOL TARTRATE 25 MG TAB PO SCH (08:24)
[2018-07-05] MEDS: CHOLECALCIFEROL 1,000 UNIT TAB PO SCH (08:24)
[2018-07-05] MEDS: FAMOTIDINE 20 MG/2 ML VIAL IV SCH (08:24)
[2018-07-05] MEDS ORDERED: APIXABAN 5 MG TAB PO SCH (09:30)
--- NOTE | 2018-07-05 10:15 | P.DS ---
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 Patient follows up with Dr. Emery in the office. He presents because of lightheadedness and dizziness for 30 seconds that is resolved after he went inside and ate lunch. He went to his PCP who referred him to the emergency room. EKG shows atrial fibrillation's with RVR at102 bpm. QTC is 463. patient has been evaluated by buffer machine team and the decision was to start him on Eliquis, while keeping metoprolol for his rate control. I discussed the risks, benefits and alternative for his blood thinner. Patient told me clearly that he prefers to take the risk of bleeding rather than stroke so he agrees to take the Eliquis. Risks including but not limited to brain bleed, stroke and/or . Based upon my evaluation patient has capacity to make medical decision. Patient was cleared by cardiology team for discharge. Patient returned to his baseline of functioning. Patient doesn't have any symptoms of headache. No chest pain or dyspnea. No change in urine or bowel habits. No nausea vomiting or fever. Problems and management plan was discussed with the patient and he agrees with it. Patient was found stable and can be discharged home and guarded prognosis. However he needs follow-up as an outpatient. Gen: patient is a AAOx3, no distress CVS: S1-S2, RRR, no murmur Lungs: B/L CTA, no wheezing Abdomen: soft, no distention, no tenderness, positive bowel sounds Extremity: no leg edema or induration Time spent more than 35 minutes Patient Condition at Discharge: Stable Plan - Discharge Summary Discharge Rx Participant: Yes New Discharge Prescriptions: New Apixaban [Eliquis] 5 mg PO BID #30 tab Metoprolol Tartrate [Lopressor] 25 mg PO BID #30 tab Continue amLODIPine [Norvasc] 5 mg PO DAILY Turmeric Root Extract [Turmeric] 500 mg PO DAILY Green Tea [place] Extract [Green Tea Extract] 150 mg PO DAILY Aspirin EC [Ecotrin Low Dose] 81 mg PO HS Cholecalciferol [Vitamin D3] 1,000 unit PO DAILY Discharge Medication List Aspirin EC [Ecotrin Low Dose] 81 mg PO HS 07/03/18 [History] Cholecalciferol [Vitamin D3] 1,000 unit PO DAILY 07/03/18 [History] Green Tea [place] Extract [Green Tea Extract] 150 mg PO DAILY 07/03/18 [History] Turmeric Root Extract [Turmeric] 500 mg PO DAILY 07/03/18 [History] amLODIPine [Norvasc] 5 mg PO DAILY 07/03/18 [History] Apixaban [Eliquis] 5 mg PO BID #30 tab 07/05/18 [Rx] Metoprolol Tartrate [Lopressor] 25 mg PO BID #30 tab 07/05/18 [Rx] Follow up Appointment(s)/Referral(s): Angela Emery MD [Primary Care Provider] - 1-2 days Norberto Razo MD [STAFF PHYSICIAN] - 1 Week Patient Instructions/Handouts: A-fib (Atrial Fibrillation) (DC) Activity/Diet/Wound Care/Special Instructions: Pts Monthly copay for Xarelto or Eliquis is $40 Discharge Disposition: HOME SELF-CARE
--- NOTE | 2018-07-05 11:20 | PN ---
PROGRESS NOTE Mr. Razo is an 82-year-old male who presented with symptoms of dizziness and weakness. He has a history of persistent atrial fibrillation. He has not been anticoagulated because of prior episode of intracranial bleed that occurred about 2 years ago. He is active physically, otherwise. Denies any chest pain, no palpitation. He is feeling better today. He is ambulating without difficulty. He had an echocardiogram that revealed preserved ventricular size and systolic function with severe tricuspid regurgitation and no significant pulmonary hypertension. I had a long discussion with him yesterday and his family regarding the issue of anticoagulation, the risk of bleeding and the risk of stroke. He is in favor of trying an anticoagulant. He will be started on Eliquis 5 mg twice a day. Otherwise, he is on amlodipine 5 mg daily, metoprolol tartrate 25 mg twice a day. PHYSICAL EXAMINATION: Blood pressure 122/70 with a heart rate in the 80s. LUNGS: Clear. HEART: Irregular, regular. S1, S2. No S3 with systolic murmur, no diastolic murmur. No rub. ABDOMEN: Soft, nontender. EXTREMITIES: No edema. IMPRESSION: 1. Atrial fibrillation persistent, rate controlled, anticoagulation initiated. 2. Status post mitral valve surgery. 3. History of hyperlipidemia. RECOMMENDATION: From the cardiac standpoint, he should be able to be discharged home today to follow up as an outpatient with Dr. Razo. MMIRISH / LEIGHA: [id number] /
== END 2018-07-05 11:13 | disposition home or self-care (01) | DRG 310 ==
LOC: EC 16:27 → 3SCARD 20:52
PROVIDERS: ADMIT Internal Medicine; ATTEND Internal Medicine
DX: I48.0 Paroxysmal atrial fibrillation (principal); G43.909 Migraine, unspecified, not intractable, without status migrainosus; Z85.038 Personal history of other malignant neoplasm of large intestine; Z86.73 Personal history of transient ischemic attack (TIA), and cerebral infarction without residual deficits; Z90.49 Acquired absence of other specified parts of digestive tract; M17.12 Unilateral primary osteoarthritis, left knee; N42.9 Disorder of prostate, unspecified; M16.11 Unilateral primary osteoarthritis, right hip; Z86.19 Personal history of other infectious and parasitic diseases; Z83.2 Family history of diseases of the blood and blood-forming organs and certain disorders involving the immune mechanism; I67.1 Cerebral aneurysm, nonruptured; Z84.89 Family history of other specified conditions; Z79.82 Long term (current) use of aspirin; Z79.899 Other long term (current) drug therapy; Z88.8 Allergy status to other drugs, medicaments and biological substances; I10 Essential (primary) hypertension; I07.1 Rheumatic tricuspid insufficiency; E78.5 Hyperlipidemia, unspecified
CPT/HCPCS: 36415; 71046; 80053; 82550; 82553; 83735; 84443; 84484; 85025; 85610; 85730; 93005; 93306; 96361; 96365; 96366; 99291

== ENCOUNTER 2019-08-08 09:45 | Emergency (ER) | payer MEDICARE ==
[2019-08-08 10:14] VITALS: BP 150/85; PULSE 76; RESP 16; TEMP 97.9
--- NOTE | 2019-08-08 10:54 | ED ---
ENT HPI - General Chief complaint: ENT Stated complaint: FB in ear Time Seen by Provider: 08/08/19 10:24 Source: patient, RN notes reviewed, old records reviewed Mode of arrival: ambulatory Limitations: no limitations - History of Present Illness Initial comments: this patient's a pleasant 83-year-old male presents emergency department today with a foreign body within his left ear. Patient reports that the rubber piece of his hearing aid is stuck within the ear canal. Patient states that it's been in for approximately one hour. Patient denies any other complaints at this time. Patient states that he's had noted redness swelling or drainage. - Related Data Home Medications Medication Instructions Recorded Confirmed Aspirin EC [Ecotrin Low Dose] 81 mg PO HS 07/03/18 07/03/18 Cholecalciferol [Vitamin D3 (25 1,000 unit PO DAILY 07/03/18 07/03/18 Mcg = 1000 Iu)] Green Tea Ada Extract [Green Tea 150 mg PO DAILY 07/03/18 07/03/18 Extract] Turmeric Root Extract [Turmeric] 500 mg PO DAILY 07/03/18 07/03/18 amLODIPine [Norvasc] 5 mg PO DAILY 07/03/18 07/03/18 Previous Rx's Medication Instructions Recorded Apixaban [Eliquis] 5 mg PO BID #30 tab 07/05/18 Metoprolol Tartrate [Lopressor] 25 mg PO BID #30 tab 07/05/18 Allergies Allergy/AdvReac Type Severity Reaction Status Date / Time lisinopril [From Zestril] Allergy Cough Verified 08/08/19 10:14 Review of Systems ROS Statement: Those systems with pertinent positive or pertinent negative responses have been documented in the HPI. ROS Other: All systems not noted in ROS Statement are negative. Past Medical History Past Medical History: Atrial Fibrillation, Cancer, CVA/TIA, Osteoarthritis (OA), Prostate Disorder Additional Past Medical History / Comment(s): colon CA-sx only. djd lt knee, rt hip. 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-pt stated no sx History of Any Multi-Drug Resistant Organisms: None Reported Past Surgical History: Bowel Resection, Hernia Repair Additional Past Surgical History / Comment(s): colon resection, Mitral valve repair, cinthia cataracts, varicose vein stripping, lt inguinal hernia repair, colonoscopy Past Anesthesia/Blood Transfusion Reactions: No Reported Reaction Additional Past Anesthesia/Blood Transfusion Reaction / Comment(s): clausterphobia Past Psychological History: No Psychological Hx Reported Smoking Status: Never smoker - Past Family History Mother Additional Family Medical History / Comment(s): lupus Father Additional Family Medical History / Comment(s): anuerysm General Exam - General Exam Comments Initial Comments: this is an 83-year-old male. Alert and oriented 3. Patient appears in no distress. Limitations: no limitations General appearance: alert, in no apparent distress Head exam: Present: atraumatic, normocephalic, normal inspection Eye exam: Present: normal appearance, PERRL, EOMI. Absent: scleral icterus, conjunctival injection, periorbital swelling ENT exam: Present: normal exam, mucous membranes moist, other (Patient has a black soft rubber piece of his hearing aid stuck within the ear canal.) Neck exam: Present: normal inspection. Absent: tenderness, meningismus, lymphadenopathy Respiratory exam: Present: normal lung sounds bilaterally. Absent: respiratory distress, wheezes, rales, rhonchi, stridor Cardiovascular Exam: Present: regular rate, normal rhythm, normal heart sounds. Absent: systolic murmur, diastolic murmur, rubs, gallop, clicks GI/Abdominal exam: Present: soft, normal bowel sounds. Absent: distended, tenderness, guarding, rebound, rigid Extremities exam: Present: normal inspection, full ROM, normal capillary refill. Absent: tenderness, pedal edema, joint swelling, calf tenderness Back exam: Present: normal inspection Neurological exam: Present: alert, oriented X3, CN II-XII intact Psychiatric exam: Present: normal affect, normal mood Course Vital Signs 08/08/19 10:13 Temperature 97.9 F Pulse Rate 76 Respiratory 16 Rate Blood Pressure 150/85 O2 Sat by Pulse 97 Oximetry Procedures - Foreign Body Removal Ear Location: ear canal (L) Foreign Body Suspected: other (soft rubber hearing aid piece) If Insect Suspected: ear canal inspected; intact TM, insect seen Foreign Body Removed: yes Foreign Body Removal Technique: forceps Tympanic Membrane Intact: Yes Patient Tolerated Procedure: well, no complications Complications: none Medical Decision Making - Medical Decision Making 83-year-old male presents today for evaluation for piece of foreign body within the right ear canal. Patient reports a piece of his hearing aid is stuck within the ear canal. A soft rubber tip was removed easily with forceps. Ear canals inspected afterward and no signs of abrasion or swelling. TMs intact. No foreign body within the right ear. Patient tolerated procedure well. Discussed monitoring for infection including redness swelling or drainage. Patient is agreeable treatment plan will comply. Return parameters were discussed. Disposition Clinical Impression: Ear foreign body Disposition: HOME SELF-CARE Condition: Good Instructions (If sedation given, give patient instructions): Ear Foreign Body (ED) Additional Instructions: Monitor for any redness swelling or drainage. Please return to the emergency room if your symptoms increase or worsen or for any other concerns. Is patient prescribed a controlled substance at d/c from ED?: No Referrals: Angela Emery MD [Primary Care Provider] - 1-2 days Time of Disposition: 10:52
== END 2019-08-08 11:00 | disposition home or self-care (01) ==
LOC: EC 09:45
DX: T16.2XXA Foreign body in left ear, initial encounter (principal); I48.91 Unspecified atrial fibrillation; Z85.038 Personal history of other malignant neoplasm of large intestine; Z86.73 Personal history of transient ischemic attack (TIA), and cerebral infarction without residual deficits; Z79.82 Long term (current) use of aspirin; Z79.899 Other long term (current) drug therapy; Z88.8 Allergy status to other drugs, medicaments and biological substances
CPT/HCPCS: 69200; 99282

== ENCOUNTER 2022-04-18 17:41 | Emergency (ER) | payer MEDICARE ==
[2022-04-18 17:51] VITALS: RESP 20; TEMP 98.1
[2022-04-18] MEDS ORDERED: DILTIAZEM 5 MG/ML 5 ML VIAL IVP STA (18:26)
--- NOTE | 2022-04-18 18:26 | ED ---
General Adult HPI - General Chief complaint: Arrhythmia/Palpitations Stated complaint: hypertension Time Seen by Provider: 04/18/22 17:58 Source: patient, family, RN notes reviewed Mode of arrival: ambulatory Limitations: no limitations - History of Present Illness Initial comments: Patient is a pleasant 86-year-old male presenting to the emergency department with concerns with high blood pressure. Patient states his blood pressure has been somewhat labile today. Blood pressure has been as high as 134/100. Patient otherwise denies any complaints. Patient denies palpitations. No chest pain. No weakness. Patient does have history of hypertension and does take medications. - Related Data Previous Rx's Medication Instructions Recorded Apixaban [Eliquis] 5 mg PO BID #30 tab 07/05/18 Metoprolol Tartrate [Lopressor] 25 mg PO BID #30 tab 07/05/18 Allergies Allergy/AdvReac Type Severity Reaction Status Date / Time lisinopril [From Zestril] AdvReac Cough Verified 04/18/22 18:53 Review of Systems ROS Statement: Those systems with pertinent positive or pertinent negative responses have been documented in the HPI. ROS Other: All systems not noted in ROS Statement are negative. Constitutional: Denies: fever Eyes: Denies: eye pain ENT: Denies: ear pain Respiratory: Denies: cough, dyspnea Cardiovascular: Denies: chest pain, palpitations Endocrine: Denies: fatigue Gastrointestinal: Denies: abdominal pain Genitourinary: Denies: dysuria Musculoskeletal: Denies: back pain Skin: Denies: rash Neurological: Denies: weakness Past Medical History Past Medical History: Atrial Fibrillation, Cancer, CVA/TIA, Osteoarthritis (OA), Prostate Disorder Additional Past Medical History / Comment(s): colon CA-sx only. djd lt knee, rt hip. 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-pt stated no sx History of Any Multi-Drug Resistant Organisms: None Reported Past Surgical History: Bowel Resection, Hernia Repair Additional Past Surgical History / Comment(s): colon resection, Mitral valve repair, cinthia cataracts, varicose vein stripping, lt inguinal hernia repair, colonoscopy Past Anesthesia/Blood Transfusion Reactions: No Reported Reaction Additional Past Anesthesia/Blood Transfusion Reaction / Comment(s): clausterphobia Past Psychological History: No Psychological Hx Reported Smoking Status: Never smoker Past Alcohol Use History: None Reported, Occasional Past Drug Use History: None Reported - Past Family History Mother Additional Family Medical History / Comment(s): lupus Father Additional Family Medical History / Comment(s): anuerysm General Exam Limitations: no limitations Course Vital Signs 04/18/22 04/18/22 17:48 19:00 Temperature 98.1 F Pulse Rate 129 H 81 Respiratory 20 20 Rate Blood Pressure 154/96 129/73 O2 Sat by Pulse 94 L 92 L Oximetry - Reevaluation(s) Reevaluation #1: 04/18/22 18:25 policy director with A. fib with rate between 107 and 114. 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 fib and hypertension with intentional monitoring for arrhythmia EKG Findings - EKG Comments: EKG Findings:: A. fib with RVR, rate 122. QRS 108. QT 313. QTC 386 axis. PVC is present. Normal QRS. No acute ST change. Medical Decision Making - Medical Decision Making Patient reevaluated. Patient remained symptom-free. Vital signs stable. Patient and family updated on results and need for follow-up. - Lab Data Result diagrams: 04/18/22 18:24 04/18/22 18:24 Lab Results 04/18/22 04/18/22 Range/Units 18:24 18:24 WBC 7.1 (3.8-10.6) k/uL RBC 4.86 (4.30-5.90) m/uL Hgb 14.8 (13.0-17.5) gm/dL Hct 47.3 (39.0-53.0) % MCV 97.3 (80.0-100.0) fL MCH 30.4 (25.0-35.0) pg MCHC 31.3 (31.0-37.0) g/dL RDW 12.4 (11.5-15.5) % Plt Count 159 (150-450) k/uL MPV 8.6 Neutrophils % 78 % Lymphocytes % 9 % Monocytes % 9 % Eosinophils % 1 % Basophils % 1 % Neutrophils # 5.5 (1.3-7.7) k/uL Lymphocytes # 0.7 L (1.0-4.8) k/uL Monocytes # 0.6 (0-1.0) k/uL Eosinophils # 0.1 (0-0.7) k/uL Basophils # 0.1 (0-0.2) k/uL Sodium 135 L (137-145) mmol/L Potassium 4.3 (3.5-5.1) mmol/L Chloride 101 (98-107) mmol/L Carbon Dioxide 22 (22-30) mmol/L Anion Gap 12 mmol/L BUN 22 H (9-20) mg/dL Creatinine 0.90 (0.66-1.25) mg/dL Est GFR (CKD-EPI)AfAm 89 (>60 ml/min/1.73 sqM) Est GFR (CKD-EPI)NonAf 77 (>60 ml/min/1.73 sqM) Glucose 249 H (74-99) mg/dL Calcium 9.0 (8.4-10.2) mg/dL Magnesium 1.8 (1.6-2.3) mg/dL Total Bilirubin 0.5 (0.2-1.3) mg/dL AST 25 (17-59) U/L ALT 17 (4-49) U/L Alkaline Phosphatase 60 (38-126) U/L Total Protein 6.8 (6.3-8.2) g/dL Albumin 4.0 (3.5-5.0) g/dL - Radiology Data Radiology results: image reviewed (Chest x-ray shows right basilar atelectasis similar to previous.) Disposition Clinical Impression: Hypertension Disposition: HOME SELF-CARE Condition: Stable Instructions (If sedation given, give patient instructions): Hypertension (ED) Additional Instructions: Please follow-up to primary care physician in the next day or 2 for recheck. Return for increased heart rate, increased blood pressure, worsening or change in symptoms or other concerns. Is patient prescribed a controlled substance at d/c from ED?: No Referrals: Angela Emery MD [Primary Care Provider] - 1-2 days Time of Disposition: 19:22
[2022-04-18 18:35] LABS: Basophils # (A) 0.1 k/uL (0-0.2); Basophils % (A) 1 %; Eosinophils # (A) 0.1 k/uL (0-0.7); Eosinophils % (A) 1 %; HCT 47.3 % (39.0-53.0); HGB 14.8 gm/dL (13.0-17.5); Lymphocytes # (A) 0.7 k/uL (1.0-4.8); Lymphocytes % (A) 9 %; MCH 30.4 pg (25.0-35.0); MCHC 31.3 g/dL (31.0-37.0); MCV 97.3 fL (80.0-100.0); Mean Platelet Volume 8.6; Monocytes # (A) 0.6 k/uL (0-1.0); Monocytes % (A) 9 %; Neutrophils # (A) 5.5 k/uL (1.3-7.7); Neutrophils % (A) 78 %; Platelet Count 159 k/uL (150-450); RBC 4.86 m/uL (4.30-5.90); RDW 12.4 % (11.5-15.5); WBC 7.1 k/uL (3.8-10.6)
[2022-04-18 18:48] LABS: Magnesium 1.8 mg/dL (1.6-2.3); Potassium 4.3 mmol/L (3.5-5.1); Total Bilirubin 0.5 mg/dL (0.2-1.3); Total Protein 6.8 g/dL (6.3-8.2)
--- NOTE | 2022-04-18 19:04 | XR ---
EXAMINATION TYPE: XR chest 2V DATE OF EXAM: 04/18/2022 COMPARISON: 07/03/2018 HISTORY: Weakness TECHNIQUE: FINDINGS: There is some linear density right lung base. Heart size is normal. No heart failure. There are no hilar masses. Mediastinum is normal. There are chest leads. IMPRESSION: There is some mild atelectasis right lung base similar to old exam. No heart failure.
[2022-04-18 19:13] VITALS: BP 129/73; PULSE 81
== END 2022-04-18 19:35 | disposition home or self-care (01) ==
LOC: EC 17:41
DX: I10 Essential (primary) hypertension (principal); Z86.73 Personal history of transient ischemic attack (TIA), and cerebral infarction without residual deficits; Z88.8 Allergy status to other drugs, medicaments and biological substances
CPT/HCPCS: 36415; 71046; 80053; 83735; 85025; 93005; 96374; 99285